=== PATIENT | male | born 1960 | race Caucasian/White ===

== ENCOUNTER 2023-11-28 12:32 | Emergency (ER) | payer OTHER ==
--- NOTE | 2023-11-28 13:11 | XRAY Report ---
PROCEDURE: Chest 1V INDICATIONS: Chest pain TECHNIQUE: One view of the chest was acquired. COMPARISON: None. FINDINGS: Surgical changes and devices: None. Lungs and pleura: No pleural effusions or pneumothorax. Lungs are clear. Mediastinum: Mediastinal contours appear normal. Heart size is normal. Bones and chest wall: No suspicious bony lesions. Overlying soft tissues appear unremarkable. IMPRESSION: No acute cardiopulmonary process. Reviewed by: Evans Coronado MD on 11/28/2023 1:09 PM PDT Approved by: Evans Coronado MD on 11/28/2023 1:09 PM PDT Station ID: [id number]
[2023-11-28 13:17] LABS: BASOPHILS % (AUTO) 0.5 %; EOSINOPHILS # (AUTO) 0.1 10^3/uL (0.0-0.7); EOSINOPHILS % (AUTO) 0.9 %; HCT - HEMATOCRIT 44.4 % (42.0-52.0); HGB - HEMOGLOBIN 15.4 g/dL (14.0-18.0); LYMPHOCYTES # (AUTO) 1.4 10^3/uL (1.5-3.5); LYMPHOCYTES % (AUTO) 25.3 %; MEAN CORPUSCULAR HEMOGLOBIN 34.2 pg (27.0-31.0); MEAN CORPUSCULAR HGB CONC 34.7 g/dL (32.0-36.0); MEAN CORPUSCULAR VOLUME 98.7 fL (80.0-94.0); MEAN PLATELET VOLUME 10.5 fL (7.4-11.4); MONOCYTES # (AUTO) 0.4 10^3/uL (0.0-1.0); MONOCYTES % (AUTO) 6.9 %; NEUTROPHILS # (AUTO) 3.7 10^3/uL (1.5-6.6); NEUTROPHILS % (AUTO) 66.2 %; PLT - PLATELET COUNT 191 10^3/uL (130-450); RED CELL DISTRIBUTION WIDTH 12.3 % (12.0-15.0); WHITE BLOOD COUNT 5.7 x10^3/uL (4.8-10.8)
--- NOTE | 2023-11-28 13:17 | ED Physician Documentation ---
PD HPI CHEST PAIN - Stated complaint Stated Complaint: HIGH BP - Chief complaint Chief Complaint: Cardiac - History obtained from History obtained from: Patient - Additional information Additional information: 63-year-old gentleman with no history of heart problems. He does smoke. No prescription medications. He a 5-hour episode of what he describes as heartburn this morning. It was central burning chest pain. He took some antacids which were not helpful. He is pain-free now, but did have some high blood pressures at home and notes that even usually his blood pressure is fairly high when he checks it at home. PD PAST MEDICAL HISTORY - Past Medical History Past Medical History: No - Past Surgical History Past Surgical History: No - Present Medications Home Medications: Ambulatory Orders Medication Instructions Recorded Confirmed No Known Home Medications 11/28/23 11/28/23 - Allergies Allergies/Adverse Reactions: Allergies Allergy/AdvReac Type Severity Reaction Status Date / Time Penicillins Allergy Unknown Verified 11/28/23 13:07 - Social History Does the pt smoke?: Yes Smoking Status: Current every day smoker - Immunizations Immunizations are current?: Yes PD ED PE NORMAL - Vitals Vital signs reviewed: Yes - General General: Alert and oriented X 3, No acute distress - HEENT HEENT: PERRL, EOMI - Neck Neck: Supple, no meningeal sign, No bony TTP - Cardiac Cardiac: RRR, No murmur - Respiratory Respiratory: No respiratory distress, Clear bilaterally - Abdomen Abdomen: Non tender - Extremities Extremities: No edema, No calf tenderness / cord - Neuro Neuro: Alert and oriented X 3, Normal speech Results - Vitals Vitals: Vital Signs - 24 hr 11/28/23 11/28/23 11/28/23 12:47 14:00 14:26 Temperature 36.7 C Heart Rate 75 72 85 Respiratory 16 13 15 Rate Blood Pressure 171/95 H 163/103 H 187/116 H O2 Saturation 99 99 98 11/28/23 11/28/23 11/28/23 14:31 14:35 14:40 Temperature Heart Rate 79 69 75 Respiratory 14 15 14 Rate Blood Pressure 175/105 H 173/105 H 175/101 H O2 Saturation 99 98 98 11/28/23 14:45 Temperature Heart Rate 70 Respiratory 17 Rate Blood Pressure 185/106 H O2 Saturation 99 Oxygen O2 Source Room air - EKG (time done) 1246 EKG releavant findings:: EKG personally interpreted by author of this note. Relevant findings are: Rate: Rate (enter#) (77) Rhythm: NSR [place]: Normal Intervals: Other (RBBB and LAFB ) Ischemia: Normal ST segments - Labs Labs: Laboratory Tests 11/28/23 11/28/23 13:12 13:12 WBC 5.7 RBC 4.50 L Hgb 15.4 Hct 44.4 MCV 98.7 H MCH 34.2 H MCHC 34.7 RDW 12.3 Plt Count 191 MPV 10.5 Neut # (Auto) 3.7 Lymph # (Auto) 1.4 L [place] # (Auto) 0.4 Eos # (Auto) 0.1 Baso # (Auto) 0.0 Absolute Nucleated RBC 0.00 Nucleated RBC % 0.0 Sodium 137 Potassium 4.1 Chloride 101 Carbon Dioxide 29 Anion Gap 7.0 BUN 14 Creatinine 0.6 Estimated GFR (MDRD) 136 Glucose 92 Calcium 10.0 Total Bilirubin 0.7 AST 17 ALT 12 Alkaline Phosphatase 66 Troponin I High Sens 90.6 H* Total Protein 7.5 Albumin 4.6 Globulin 2.9 Albumin/Globulin Ratio 1.6 Lipase 49 - Rads (name of study) Single view chest x-ray demonstrates no acute process. Relevant Findings:: Final report received, EMP independent interpretation of test PD Medical Decision Making - ED course ED course: He had chest pain for 5 hours, now resolved. Risk factors for coronary disease include age and smoking as well as possible hypertension. 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 Follow-up for these was advised. Will check troponins. Nothing in the history or physical to suggest dissection or thromboembolic disease. He was counseled to quit smoking. Subsequently testing demonstrated normal EKG, unremarkable CBC and CMP but an elevated troponin at 90.6 which does suggest that his pain this morning was related to unstable angina. He is pain-free now and he was administered aspirin and beta-blockade in [place] was called for possible transfer at approximately [address] Ghotra, commercial diver at [place] 2:55 PM who accepts in transfer pending bed availability and does recommend loading him with Plavix, heparin, statin. Departure - Departure Disposition: 02 Transfer Acute Care Hosp Clinical Impression: Unstable angina Condition: Serious Forms: PCP List
[2023-11-28 13:50] LABS: ALBUMIN 4.6 g/dL (3.2-5.5); ALBUMIN/GLOBULIN RATIO 1.6 (1.0-2.2); BILIRUBIN,TOTAL 0.7 mg/dL (0.2-1.0); CREATININE 0.6 mg/dL (0.6-1.3); POTASSIUM 4.1 mmol/L (3.5-4.5); TOTAL PROTEIN 7.5 g/dL (6.4-8.9)
[2023-11-28 14:02] LABS: TROPONIN I HIGH SENSITIVITY 90.6 ng/L (2.3-19.7)
[2023-11-28] MEDS: ASPIRIN CHEW 81 MG TABLET PO STA (14:24)
[2023-11-28] MEDS: METOPROLOL TARTRATE 50 MG TABLET PO STA (14:27)
[2023-11-28] MEDS: METOPROLOL 5 MG/5 ML VIAL IVP STA (14:32)
[2023-11-28] MEDS: ATORVASTATIN 40 MG TABLET PO STA (15:07)
[2023-11-28] MEDS: CLOPIDOGREL 300 MG TABLET PO STA (15:07)
[2023-11-28] MEDS: NITROGLYCERIN 2% PASTE TOP STA (15:15)
[2023-11-28] MEDS: HEPARIN 25000UNITS/500ML (D5W) 25,000 UNIT/500 ML BAG IV SCH (15:19)
[2023-11-28 16:43] VITALS: BP 158/98; O2SAT 97
--- NOTE | 2023-11-28 21:38 | ED Physician Documentation ---
ED Addendum - Addendum Addendum: Domonique ceballos Artie called back and stated that the hospitalist wanted a report on the patient as they were going to be admitting the patient, not the plywood matcher, therefore I spoke with Dr. Hernandez. She accepts in transfer. The COB[employer] forms were already completed. Patient transferred This document was made in part using voice recognition software. While efforts are made to proofread this document, sound alike and grammatical errors may occur.
== END 2023-11-28 17:51 | disposition short-term general hospital (02) ==
LOC: ED 12:32
DX: I20.0 Unstable angina (principal); R03.0 Elevated blood-pressure reading, without diagnosis of hypertension; F17.200 Nicotine dependence, unspecified, uncomplicated
CPT/HCPCS: 36415; 71045; 80053; 83690; 84484; 85025; 93005; 96374; 96375; 99285; A9270